=== PATIENT | male | born 1930 | race Caucasian/White ===

== ENCOUNTER 2017-02-12 09:12 | Day surgery (SDC) | payer MEDICARE, OTHER ==
[2017-02-12] MEDS ORDERED: fentaNYL 100 MCG/2 ML INJ IVP ONE (09:18)
[2017-02-12] MEDS ORDERED: PROPOFOL 200 MG/20 ML VIAL IVP ONE (09:18)
[2017-02-12] MEDS ORDERED: NS 500 ML IV ONE (09:18)
[2017-02-12] MEDS ORDERED: MIDAZOLAM 2 MG/2 ML VIAL IVP ONE (09:18)
--- NOTE | 2017-02-12 09:52 | CPEKG ---
Heart Rate: 68 RR Interval: 882 QRSD Interval: 84 QT Interval: 380 QTC Interval: 405 QRS [place]: -18 T Wave [place]: 67 EKG Severity - ABNORMAL ECG - EKG Impression: ATRIAL FIBRILLATION EKG Impression: MULTIFORM VENTRICULAR PREMATURE COMPLEXES EKG Impression: BORDERLINE LEFT AXIS DEVIATION Electronically Signed By: Chava Pyle 12-Feb-2017 18:43:24
[2017-02-12] MEDS ORDERED: ATROPINE SULFATE 1 MG/10 ML SYR ONE (10:02)
[2017-02-12 10:10] LABS: INR 1.83 (0.83-1.16); PROTIME(PATIENT) 21.2 SEC (12.0-15.0)
[2017-02-12 10:11] LABS: APTT 32.1 SEC (23.0-38.0)
[2017-02-12 10:16] LABS: ANION GAP 11 mEq/L (8-16); CALCIUM 10.3 mg/dL (8.5-10.4); CARBON DIOXIDE 27 mEq/l (22-31); CHLORIDE 105 mEq/L (97-110); CREATININE 0.8 mg/dL (0.7-1.3); DIGOXIN 0.9 ng/mL (0.8-2.0); GLOMERULAR FILTRATION RATE > 60; GLUCOSE 94 mg/dL (70-100); MAGNESIUM 1.9 mg/dL (1.6-2.3); POTASSIUM 4.1 mEq/L (3.5-5.2); SODIUM 143 mEq/L (134-144)
[2017-02-12] MEDS ORDERED: PROPOFOL 200 MG/20 ML VIAL ONE (11:41)
[2017-02-12] MEDS ORDERED: LIDOCAINE 2% 5 ML SDV ONE (11:42)
[2017-02-12] MEDS ORDERED: ENOXAPARIN 60 MG/0.6 ML SYR SC ONE (13:00)
--- NOTE | 2017-02-12 13:20 | PDTEE1 ---
GRACY Cardioversion Procedure Procedure: Electrical Cardioversion, Transesophageal Echo Indications: Atrial Fibrillation Consent: Signed and in Chart Anticoagulation: Warfarin Procedural Details: Pads were placed in anterior-posterior position. GRACY probe was advanced and standard images obtained. There is no evidence of left atrial or left atrial appendage thrombus. Synchronized cardioversion attempt #1: 150J Results: Normal sinus rhythm Conclusions: Successful Cardioversion
--- NOTE | 2017-02-12 13:21 | CPEKG ---
Heart Rate: 77 RR Interval: 779 P-R Interval: 196 QRSD Interval: 84 QT Interval: 384 QTC Interval: 435 P [place]: 42 QRS [place]: -26 T Wave [place]: 107 EKG Severity - ABNORMAL ECG - EKG Impression: SINUS RHYTHM EKG Impression: ATRIAL PREMATURE COMPLEX EKG Impression: NONSPECIFIC T ABNORMALITIES, LATERAL LEADS EKG Impression: LEFT AXIS DEVIATION EKG Impression: LEFT VENTRICULAR HYPERTROPHY Electronically Signed By: Chava Pyle 12-Feb-2017 18:43:05
== END 2017-02-12 15:00 | disposition home or self-care (01) ==
LOC: FCATH 09:12
PROVIDERS: ATTEND Internal Medicine Cardiovascular Disease
DX: I48.0 Paroxysmal atrial fibrillation (principal); I25.10 Atherosclerotic heart disease of native coronary artery without angina pectoris; E78.5 Hyperlipidemia, unspecified; E03.9 Hypothyroidism, unspecified; G47.33 Obstructive sleep apnea (adult) (pediatric); Z79.01 Long term (current) use of anticoagulants
CPT/HCPCS: J0461; J1650; J2704